=== PATIENT | male | born 1950 | race Hispanic/Latino ===

== ENCOUNTER → 2018-05-04 | Outpatient (CLI) | payer MEDICARE, BC ==
--- NOTE | 2018-05-18 15:57 | Polysomnography ---
DATE OF STUDY: May 04, 2018 SPLIT NIGHT POLYSOMNOGRAM IMPRESSIONS: 1. Moderate obstructive sleep apnea with associated arterial oxygen desaturations and a respiratory distress index (RDI) of 28.7. 2. Periodic limb movements were observed primarily in non-REM sleep. 3. Significant snoring was noted. 4. CPAP titration to 10 cm of water pressure significantly improved the sleep- disordered breathing. RECOMMENDATIONS: 1. Initiate treatment for obstructive sleep apnea with continuous positive airway pressure therapy (CPAP) at 10 cm of water pressure. 2. ENT evaluation to consider surgical options to correct sleep disorder breathing. 3. Avoid consumption of alcohol or sedatives before bedtime. 4. Avoid caffeine and exercise within 3-4 hours prior to bedtime. 5. Weight reduction to ideal body weight recommended. 6. Advised the patient that excessive daytime sleepiness could pose a danger to the patient and others while driving or operating heavy machinery and to use caution until symptoms are treated and improved. 7. The patient to follow up with physician to discuss results of study. Job#: [id number]
== END ==
LOC: SLEEP 20:07
PROVIDERS: ATTEND Otolaryngology
DX: G47.33 Obstructive sleep apnea (adult) (pediatric) (principal)
CPT/HCPCS: 95811